=== PATIENT | female | born 1985 | race Caucasian/White ===

== ENCOUNTER 2021-08-19 09:01 | Outpatient (CLI) | payer BC, SELFPAY ==
[2021-08-19 10:54] LABS: Hematocrit 37.1 % (37.0-47.0); Hemoglobin 12.2 g/dL (12.0-15.0); Mean Corpuscular HGB Conc 32.9 g/dl (32-36); Mean Corpuscular Hemoglobin 28.8 pg (26-34); Mean Corpuscular Volume 87.7 fl (80-100); Mean Platelet Volume 9.2 fl (7.4-10.4); Platelet Count Result 338 k/mm3 (150-375); Red Blood Count 4.23 M/mm3 (4.2-5.4); White Blood Count 10.4 K/mm3 (4.5-10.0)
[2021-08-19 11:15] LABS: Glucose 1 Hour PP 50gm Dose 143 mg/dL
[2021-08-19 12:04] LABS: HIV 1/2 Ab P24 Ag Result Negative (Negative)
== END 2021-08-19 09:02 | disposition home or self-care (01) ==
PROVIDERS: Obstetrics & Gynecology; PCP Family Medicine; Visit Provider Internal Medicine Hematology & Oncology
DX: Z34.92 Encounter for supervision of normal pregnancy, unspecified, second trimester (principal); Z3A.26 26 weeks gestation of pregnancy
CPT/HCPCS: 36415; 82947; 85027; 86703; G0432

== ENCOUNTER 2021-09-12 07:58 | Outpatient (CLI) | payer BC, SELFPAY ==
[2021-09-12 08:25] LABS: Glucose Fasting Gestational 92 mg/dL (>/=95)
[2021-09-12 10:21] LABS: Glucose 1 Hour Gest 170 mg/dL (>/=180)
[2021-09-12 11:07] LABS: Glucose 2 Hour Gest 174 mg/dL (>/= 155)
[2021-09-12 12:56] LABS: Glucose 3 Hour Gest 158 mg/dL (>/=140)
== END 2021-09-12 07:59 | disposition home or self-care (01) ==
PROVIDERS: PCP Family Medicine; Visit Provider Obstetrics & Gynecology
DX: R73.09 Other abnormal glucose (principal)
CPT/HCPCS: 36415; 82951; 82952

== ENCOUNTER 2021-10-02 13:45 | Outpatient (RCR) | payer BC, SELFPAY ==
[2021-10-02 13:37] VITALS: BMI 24.9
[2021-10-02 13:43] VITALS: BMI 24.9
== END 2021-12-15 09:31 | disposition home or self-care (01) ==
LOC: ANHDMC 13:45
PROVIDERS: PCP Family Medicine; Visit Provider Obstetrics & Gynecology
DX: O24.419 Gestational diabetes mellitus in pregnancy, unspecified control (principal); Z3A.00 Weeks of gestation of pregnancy not specified; Z71.89 Other specified counseling; Z71.3 Dietary counseling and surveillance
CPT/HCPCS: 97802; G0108

== ENCOUNTER 2021-11-16 02:19 | Inpatient (IN) | payer BC, SELFPAY ==
--- NOTE | 2021-11-10 13:21 | PC.NURSE ---
Verified with OR schedule and patient --C/S on 11/19/21 at 9 am for breech Patient given requisition for lab draw on 11/18/21
[2021-11-16] VITALS (26 sets, daily range): BP systolic 104–163; BP diastolic 60–123; PULSE 68–136; RESP 14–18; TEMP 36.4–37.2; O2SAT 98–100; BMI 26.2
[2021-11-16] MEDS: LACTATED RINGERS 1,000 ML 125 ML IV CONT (03:00)
--- NOTE | 2021-11-16 03:07 | P.HP_ITS ---
H&P: HPI History of Present Illness Date/Time: 11/16/21 03:07 Kacie is a 36yo @ 39.0wks (APRYL 11/23/21) who presented to L&D in active labor, 6cm w/ regular contractions. She has been breech this entire time and was scheduled for on 11/19/21. She reports regular contractions. No VB or LOF. Good movement. Her is complicated by: - Breech malpresentation - A1GDM Chief Complaint: contractions Review of Systems Review of Systems: All systems reviewed & are unremarkable except as noted in HPI and below (HPI) [facility] Past Medical History Medical History Adverse effect of cefaclor Allergies Amoxicillin rash Anxiety and depression Surgical History Surgical History History of colposcopy (10/02/15) 10/02/2015 chronic cxitis History of colposcopy (08/17/13) 08/17/2013 benign Family History Family History Mother Hypertension Thyroid disorder Essential thrombocythemia Father Diabetes mellitus Hypertension Blood clot in vein Cerebrovascular accident Heart attack S/P CABG x 4 Grandparent Breast cancer Heart attack Stented coronary artery Depression Chronic obstructive pulmonary disease Social History Social History Smoking status: Never smoker Alcohol intake: never Substance use: never Spiritual care concerns: No Meds Home Medications and Allergies Home Medications Medication Instructions Recorded Confirmed Type vitamins-iron 29 mg-folic 1 tablet PO 08/05/21 11/12/21 History acid 1 mg-docusate 50 mg tablet Allergies Allergy/AdvReac Type Severity Reaction Status Date / Time amoxicillin [From Amoxil] Allergy Rash Verified 11/16/21 03:04 cefaclor [From Ceclor] Allergy Rash Verified 11/16/21 03:04 Exam Const: General: cooperative, healthy appearing and comfortable Resp: Effort & Inspection: normal respiratory effort Cardio: Rate: regular rate GI: Inspection: normal to inspection GI Palp: No abdominal tenderness and Yes Soft to palpation : Other: FHT's: 140's/mod wilma/ + accels/ no decels - cat 1 TOCO: ctx'sq2-4min Cervix: 6/C/-4 Presentation: breech confirmed on bedside US Skin: General skin exam: normal color Neuro: General: patient oriented x3 Extrem: General: normal to inspection Psych: Appearance: grossly normal Affect: normal affect Attitude: cooperative Assessment and Plan Assessment and plan (1) Breech presentation: Qualifiers: Fetus number: single or unspecified fetus Qualified Code(s): O32.1XX0 - Maternal care for breech presentation, not applicable or unspecified Code(s): O32.1XX0 - Maternal care for breech presentation, not applicable or unspecified Status: Acute (2) Active labor at term: Status: Acute Additional Plan - Breech confirmed on bedside US - Proceed with primary due to malpresentation - risks and benefits explained in detail
[2021-11-16 03:15] LABS: Basophils Absolute Auto 0.1 K/mm3 (0.0-0.1); Basophils Percent Auto 0.5 % (0.2-1.2); Eosinophils Absolute Auto 0.1 K/mm3 (0-0.3); Eosinophils Percent Auto 0.8 % (0-4.4); Hematocrit 38.7 % (37.0-47.0); Hemoglobin 11.9 g/dL (12.0-15.0); Immature Granulocyte Absolute 0.05 K/mm3 (0.00-0.031); Immature Granulocyte Percent A 0.5 % (0-0.5); Lymphocytes Absolute Auto 2.37 K/mm3 (0.9-3.2); Lymphocytes Percent Auto 21.9 % (18.3-44.2); Mean Corpuscular HGB Conc 30.7 g/dl (32-36); Mean Corpuscular Hemoglobin 25.9 pg (26-34); Mean Corpuscular Volume 84.3 fl (80-100); Mean Platelet Volume 9.8 fl (7.4-10.4); Monocytes Absolute Auto 0.6 K/mm3 (0.1-0.6); Monocytes Percent Auto 5.4 % (2.6-8.5); Neutrophils Absolute Auto 7.7 K/mm3 (1.3-6.7); Neutrophils Percent Auto 70.9 % (45.5-73.1); Platelet Count Result 291 k/mm3 (150-375); Red Blood Count 4.59 M/mm3 (4.2-5.4); Red Cell Distribution Width 14.7 % (11.5-14.5); White Blood Count 10.8 K/mm3 (4.5-10.0)
--- NOTE | 2021-11-16 03:16 | LDADM ---
This patient, Kacie Cervantes, was admitted to Labor/Delivery/Recovery 120 on 11/16/21 at 02:19. Plans for labor, pain management and were discussed with patient. Patient/family oriented to hospital policies and general routines including ID bracelet, bed and alarms, visiting hours, pain management, procedures, bathroom and other care routines, personal items, smoking policy, room service/diet and guest tray routines, infant security routines, and visiting hours. Patient/Family are encouraged to report perceived risks to care and to ask questions if they do not understand what they are told or what they should do. See OBIX for further documentation.
--- NOTE | 2021-11-16 03:19 | WPDHPUPDATE1 ---
History and Physical Update Update Date/Time: 11/16/21 03:19 History and Physical has been reviewed, including an updated exam of the patient. There are NO changes in the patient's condition. Risks, benefits, and alternatives have been discussed and questions answered. Patient agrees to proceed with procedure.
--- NOTE | 2021-11-16 03:32 | WPDANESEPPF ---
Anes - Initial Pre Proc Eval Procedure: Operation Date: 11/16/21 03:30 Proposed Procedures p Section - Laney Trinh MD Operation Date: 11/19/21 09:00 Proposed Procedures p Section - Jessee Lizarraga MD Date/Time: 11/16/21 03:32 Surgeon: Jessee Lizarraga MD Pre Op Diagnosis: Contractions Patient Data Age: 36 Gender: F Height: 1.6 m Weight: 67 kg Allergies Allergy/AdvReac Type Severity Reaction Status Date / Time amoxicillin [From Amoxil] Allergy Rash Verified 11/16/21 03:04 cefaclor [From Ceclor] Allergy Rash Verified 11/16/21 03:04 Home Medications Medication Instructions Recorded Confirmed Type vitamins-iron 29 mg-folic 1 tablet PO 08/05/21 11/12/21 History acid 1 mg-docusate 50 mg tablet Laboratory Tests 11/16/21 11/16/21 11/16/21 03:09 03:09 03:09 WBC 10.8 K/mm3 H K/mm3 (4.5-10.0) RBC 4.59 M/mm3 M/mm3 (4.2-5.4) Hgb 11.9 g/dL L g/dL (12.0-15.0) Hct 38.7 % % (37.0-47.0) MCV 84.3 fl fl (80-100) MCH 25.9 pg L pg (26-34) MCHC 30.7 g/dl L g/dl (32-36) RDW 14.7 % H % (11.5-14.5) Plt Count 291 k/mm3 k/mm3 (150-375) MPV 9.8 fl fl (7.4-10.4) Immature Gran % (Auto) 0.5 % % (0-0.5) Neut % (Auto) 70.9 % % (45.5-73.1) Lymph % (Auto) 21.9 % % (18.3-44.2) [place] % (Auto) 5.4 % % (2.6-8.5) Eos % (Auto) 0.8 % % (0-4.4) Baso % (Auto) 0.5 % % (0.2-1.2) Lymph # (Auto) 2.37 K/mm3 K/mm3 (0.9-3.2) [place] # (Auto) 0.6 K/mm3 K/mm3 (0.1-0.6) Eos # (Auto) 0.1 K/mm3 K/mm3 (0-0.3) Baso # (Auto) 0.1 K/mm3 K/mm3 (0.0-0.1) Abs Immat Gran (auto) 0.05 K/mm3 H K/mm3 (0.00-0.031) Absolute Neuts (auto) 7.7 K/mm3 H K/mm3 (1.3-6.7) Absolute Nucleated RBC 0.0 K/mm3 K/mm3 (0.0-0.012) Nucleated RBC % 0.0 % % (0.0-0.2) RPR Pending HIV 1&2 Ab/P24 Ag 4thGn Pending Patient hx anesthesia problems: none Family hx anesthesia problems: none Results Review: All pre-operative results and documents have been reviewed as part of the pre-operative evaluation. [facility] Past Medical History Medical History Adverse effect of cefaclor Allergies Amoxicillin rash Anxiety and depression Surgical History Surgical History History of colposcopy (10/02/15) 10/02/2015 chronic cxitis History of colposcopy (08/17/13) 08/17/2013 benign Family History Family History Mother Hypertension Thyroid disorder Essential thrombocythemia Father Diabetes mellitus Hypertension Blood clot in vein Cerebrovascular accident Heart attack S/P CABG x 4 Grandparent Breast cancer Heart attack Stented coronary artery Depression Chronic obstructive pulmonary disease Social History Social History Smoking status: Never smoker Alcohol intake: never Substance use: never Spiritual care concerns: No Anes - Eval Final PreProcedure Day of Procedure 11/16/21 03:32 Patient weight: normal Heart: regular rate and rhythm Lungs: clear to auscultation Last oral intake: 6 hours ASA classification: II Emergent: no Anesthetic plan: proceed Anesthesia type and monitoring: regional and standard monitoring Results Review: All pre-operative results and documents have been reviewed as part of the pre-operative evaluation. Informed Consent: The patient's anesthetic plan and its attendant risks and benefits were discussed with the patient/family/POA. Questions were solicited and answers provided to the satisfaction of the patient/family/POA.
[2021-11-16] MEDS: ceFAZolin 2 GM/D5W 50 ML 2 GM/50 ML BAG IVPB (03:46)
[2021-11-16 04:06] LABS: HIV 1/2 Ab P24 Ag Result Negative (Negative)
--- NOTE | 2021-11-16 04:37 | P.PCNOB_ITS ---
OB - Delivery Note Procedure Delivery date: 11/16/21 Procedure: Procedures Operation Date: 11/16/21 03:30 <No data on this case meets the specified criteria> Operation Date: 11/19/21 09:00 <No data on this case meets the specified criteria> Events: Breech Presentation and Gestational Diabetes Delivery monitor: External FHT and External Uterine Route of delivery: Delivery repair: vicryl Specimen: Yes (placenta) Quantitative Blood Loss (ml): 215 Anesthesia type: Spinal Disposition: Floor [place] Baby Date of : 11/16/21 Time of : 03:53 Weeks of gestation at delivery: 39 Infant gender: Male Weight (pounds): 6 Weight (ounces): 10 presentation: cher breech Placenta delivery description: Manual Removal (cord avulsed) Cord Vessel Description: 3 Vessels score one minute: 9 score five minutes: 9 Narrative: She was counseled on all risks and benefits in detail. She was taken to the operating room where spinal was placed. She was then prepped and draped in the normal sterile fashion. She received 2g Ancef and a time out was performed. A Pfannenstiel incision was made in the skin and carried down to the underlying fascia. The fascia was nicked on either side of the midline and the fascial incision was extended laterally and superiorly. The fascia was then elevated and the underlying rectus muscles were dissected off the fascia, superiorly and inferiorly. The rectus muscles were then in the midline and the peritoneum was entered bluntly. Once adequate exposure was obtained, a Mobius self retractor was placed within the abdomen. A bladder flap was created. A low transverse incision was made on the lower uterine segment and clear fluid was noted. The buttocks were brought to the hysterotomy and the infant was easily delivered using normal breech maneuvers, meconium was noted. The infant had spontaneous cry and the mouth and nose were bulb suctioned. The cord was clamped and cut and the was handed off to the awaiting pediatric nurse. A segment of the cord was collected for cord gases. The remaining cord blood was collected for typing. With pitocin infusing, gentle traction was placed on the cord and the cord avulsed. The placenta was then removed manually without complications. The uterus was cleared of all clots and debris using a clean, moist lap. The hysterotomy was then repaired in a running, interlocking fashion using 0 Vicryl. A second layer imbricating suture was then made using 0 Vicryl. A figure of eight stitch using 0 Vicryl was placed in the right edge of the hysterotomy, and it was found to be hemostatic and good uterine tone. The bilateral adnexa were examined and found to be normal. The pelvis was cleared of all clots and fluid. The Mobius retractor was removed from the abdomen. The peritoneum, muscle, and fascia were examined and made hemostatic with bovie cautery. The fascia was then repaired using a 0 Vicryl suture in a running fashion. The subcutaneous tissue was then irrigated and made hemostatic with bovie cautery. The subcutaneous tissue was then reapproximated using 2-0 Vicryl. The skin was then closed using 4-0 Monocryl in a running subcuticular fashion. Sponge, lap, needle and instrument counts were correct at the end of the procedure x2. The patient tolerated the procedure well and was taken to recovery in a stable condition. [facility] Delivery Billing Delivery Delivery: Delivery Charge
[2021-11-16] MEDS: OXYTOCIN 30 UNITS/NS 500 ML 30 UNITS/500 ML BAG 125 UNITS IV CONT (05:00)
--- NOTE | 2021-11-16 07:05 | OBPPTRN ---
Patient transferred to post room #290 via stretcher. Support person and baby present. Oriented to unit, room, information board, rooming in, admission packet and security measures. Patient verbalizes understanding. Call light within reach and bed locked in lowest position
[2021-11-16] MEDS: DEXTROSE 5%/0.45% SOD CHL 1,000 ML 125 ML IV CONT (10:06)
[2021-11-16] MEDS: KETOROLAC 30 MG/ML VIAL (*BKC) IV PUSH ×2 (10:09→16:33)
[2021-11-16 17:30] LABS: Mean Corpuscular HGB Conc 32.4 g/dl (32-36); Mean Corpuscular Hemoglobin 26.4 pg (26-34); Mean Corpuscular Volume 81.7 fl (80-100); Platelet Count Result 268 k/mm3 (150-375); Red Blood Count 4.16 M/mm3 (4.2-5.4); Red Cell Distribution Width 14.7 % (11.5-14.5); White Blood Count 13.8 K/mm3 (4.5-10.0)
[2021-11-16 17:37] LABS: Total Protein Urine Random 20 mg/dL
[2021-11-16 17:39] LABS: Alanine Aminotransferase 13 U/L (4-35); Alkaline Phosphatase 184 U/L (38-126); Anion Gap 1 mmol/L (8-16); Aspartate Amino Transferase 31 U/L (14-36); Bilirubin,Total 0.1 mg/dL (0.2-1.3); Blood Urea Nitrogen 7 mg/dL (7-17); Calcium 8.5 mg/dL (8.4-10.2); Carbon Dioxide 25 mmol/L (22-30); Chloride 106 mmol/L (98-107); Estimated CRCL calculation 93 ml/min; Estimated Glomerular Filt Rate > 60; Glucose 116 mg/dL (65-110); Lactate Dehydrogenase 557 U/L (313-618); Potassium 3.4 mmol/L (3.4-5.0); Sodium 132 mmol/L (137-145); Uric Acid 3.5 mg/dL (2.5-7.5)
[2021-11-16 18:06] LABS: Creatinine Urine 38.1 mg/dL; Ur Ttl Prot Creatinine Ratio 0.52 mg/mg (0-0.20)
[2021-11-16] MEDS: MULTIVIT/MIN/PREN/FOL AC/IRON TABLET 1 TAB PO (19:25)
[2021-11-16] MEDS: DOCUSATE SODIUM 100 MG CAPSULE PO (19:25)
[2021-11-16] MEDS: SIMETHICONE 80 MG TAB.CHEW PO (19:26)
[2021-11-16] MEDS: HYDROcodone/acetaminophen (*CRX) 5-325 MG TABLET 1 TAB PO (19:26)
[2021-11-16] MEDS: NIFEdipine 30 MG TAB.ER.24 PO (20:19)
[2021-11-17] VITALS (8 sets, daily range): BP systolic 117–141; BP diastolic 79–94; PULSE 81–108; RESP 16–20; TEMP 36.5–37.4; O2SAT 98–100
--- NOTE | 2021-11-17 07:12 | PM.OBPNVD ---
OB - PN: Subj Subjective Date/time seen: 11/17/21 07:12 Narrative: POD#1 Kacie reports doing well today. Her bleeding is light. Her pain is controlled. She is tolerating regular diet, voiding, passing gas, and ambulating without issues. Her blood pressures have been better since starting the nifedipine. She denies any issues with her incision. She is breast feeding/pumping. She would like her son circumcised. OB - PN: Obj Data Labs CBC & Chem 7: 11/16/21 17:21 11/16/21 17:21 Labs: Laboratory Results - last 24 hr 11/16/21 11/16/21 11/16/21 17:21 17:21 17:21 WBC 13.8 H RBC 4.16 L Hgb 11.0 L Hct 34.0 L MCV 81.7 MCH 26.4 MCHC 32.4 RDW 14.7 H Plt Count 268 MPV 10.0 Sodium 132 L Potassium 3.4 Chloride 106 Carbon Dioxide 25 Anion Gap 1 L BUN 7 Creatinine 0.60 L Estim Creat Clear Calc 93 Estimated GFR > 60 Glucose 116 H Uric Acid 3.5 Calcium 8.5 Total Bilirubin 0.1 L AST 31 ALT 13 Alkaline Phosphatase 184 H Lactate Dehydrogenase 557 Total Protein 6.0 L Albumin 3.0 L U Random Total Protein Urine Creatinine Protein/Creat Ratio 2 11/16/21 17:22 WBC RBC Hgb Hct MCV MCH MCHC RDW Plt Count MPV Sodium Potassium Chloride Carbon Dioxide Anion Gap BUN Creatinine Estim Creat Clear Calc Estimated GFR Glucose Uric Acid Calcium Total Bilirubin AST ALT Alkaline Phosphatase Lactate Dehydrogenase Total Protein Albumin U Random Total Protein 20 Urine Creatinine 38.1 Protein/Creat Ratio 2 0.52 H OB - PN A/P Assessment and Plan (1) Breech presentation: Qualifiers: Fetus number: single or unspecified fetus Qualified Code(s): O32.1XX0 - Maternal care for breech presentation, not applicable or unspecified Code(s): O32.1XX0 - Maternal care for breech presentation, not applicable or unspecified Status: Acute (2) Pre-eclampsia: Code(s): O14.90 - Unspecified pre-eclampsia, unspecified trimester Status: Acute (3) S/P primary low transverse : Code(s): Z98.891 - History of uterine scar from previous surgery Status: Acute Plan Plan: routine care Comments: - continue pain meds - will switch to Labetalol (pt cannot swallow pills); pt asymptomatic and BP's in normal to mild range overnight Time Spent With Patient Time: Total time spent is greater than 50% in coordination of care (as documented) at patient's floor/unit and/or counseling patient: Review of Systems Constitutional: Constitutional: Denies chills, Denies fever(s) and Denies headache(s) Eyes: Eyes: Denies change in vision ENT: Denies dizziness and Denies headache(s) Cardiovascular: Cardiovascular: Denies chest pain, Denies palpitations and Denies dyspnea Respiratory: Respiratory: Denies cough and Denies dyspnea Gastrointestinal: Gastrointestinal: Denies nausea and Denies vomiting Genitourinary: Comments: normal bleeding Neurologic: Denies dizziness and Denies headache(s) Endocrine: Endocrine: Denies palpitations Exam Const: General: cooperative, comfortable and no acute distress Orientation/consciousness: patient oriented x3 Resp: Effort & Inspection: normal respiratory effort Auscultation: clear to auscultation bilaterally Cardio: Rate: regular rate GI: Inspection: non-distended and incision (covered with clean dressing) GI Palp: Yes abdominal tenderness (appropriate) and Yes Soft to palpation Auscultation: normal bowel sounds : Other: fundus firm Skin: General skin exam: normal color Neuro: General: patient oriented x3 Extrem: General: normal to inspection Psych: Appearance: grossly normal Affect: normal affect Attitude: cooperative
[2021-11-17 09:00] LABS: Rapid Plasma Reagin Non-Reactive (NonReactive)
[2021-11-17] MEDS: DOCUSATE SODIUM LIQ 100 MG/10 ML UDC PO ×2 (09:44→17:52)
[2021-11-17] MEDS: IBUPROFEN SUSPENSION 200 MG/10 ML UDC 600 MG PO ×2 (09:44→17:53)
[2021-11-17] MEDS: ACETAMINOPHEN ELIXIR 325 MG/10.15 ML UDC 650 MG PO ×2 (09:45→17:53)
[2021-11-17] MEDS: LABETALOL HCL 100 MG TABLET 200 MG PO ×2 (09:46→21:05)
[2021-11-17] MEDS: MULTIVIT/MIN/PREN/FOL AC/IRON TABLET 1 TAB PO (09:48)
--- NOTE | 2021-11-17 12:55 | PC.NURSE ---
[id number] Breast pump provided prior to shift due to patient concerned with having milk for and thinking she needed to feed something so she started bottle feeding and pumping. Discussed milk production and supply. Father of the baby came into the room and supported mom feeding and had concerns regarding mother getting sleep, having the efforts, his ability to help feed the infant, and shared past experiences with his children born over 17 yrs ago. Encouraged pumping every 3 hours 1-2 times at night to stimulate hormones to make and release milk. Instructions given on cleaning, care, usage, there should be no pain, pumping schedule for milk production, collection, and storage of human milk. Parents are encouraged to record pumping schedule on the feeding sheet. Father of the baby is concerned that mother will not get up through the night to pump and she needs her sleep. Education given on stimulating infant to wake with unwrapping, undressing and burping so would eat drink the formula bottle since mother is having difficulty waking infant to eat. Patient was assessed for correct placement, flange size, to pump for comfort and nipple stretching/stimulation for adequate milk production. Encouraged parents to love and feed their baby working with a plan that fits their lifestyle. Mother voiced understanding of the education shared and referred to the mom and baby guide for additional resource information. Reported to the primary RN.
[2021-11-17] MEDS: HYDROcodone/acetaminophen (*CRX) 5-325 MG TABLET 1 TAB PO (21:05)
--- NOTE | 2021-11-18 07:20 | P.PNOB_ITS ---
OB - PN: Subj Subjective Date/time seen: 11/18/21 07:20 Narrative: POD#2 Kacie reports doing well today. Her bleeding is light. Her pain is controlled. She is tolerating regular diet, voiding, passing gas, and ambulating without issues. Her blood pressures are in normal range since switching to labetalol. She denies any issues with her incision. She is pumping. She would like to go home tomorrow. OB - PN: Obj Data Labs CBC & Chem 7: 11/16/21 17:21 11/16/21 17:21 Labs: Laboratory Results - last 24 hr 11/16/21 03:09 RPR Non-reactive OB - PN A/P Assessment and Plan (1) Pre-eclampsia: Qualifiers: Trimester: third trimester Qualified Code(s): O14.93 - Unspecified pre- eclampsia, third trimester Code(s): O14.90 - Unspecified pre-eclampsia, unspecified trimester Status: Acute (2) S/P primary low transverse : Code(s): Z98.891 - History of uterine scar from previous surgery Status: Acute Plan day: 2 Plan: routine care and discharge home (tomorrow) Comments: - Pelvic rest; take meds as prescribed - Incision care/no heavy lifting - ER return precautions: fever, n/v/abd pain, bleeding, HTN - F/u in 2wks for incision/BP check Time Spent With Patient Time: Total time spent is greater than 50% in coordination of care (as documented) at patient's floor/unit and/or counseling patient: Review of Systems Constitutional: Constitutional: Denies chills, Denies fever(s) and Denies headache(s) Eyes: Eyes: Denies change in vision ENT: Denies dizziness and Denies headache(s) Cardiovascular: Cardiovascular: Denies chest pain, Denies palpitations and Denies dyspnea Respiratory: Respiratory: Denies cough and Denies dyspnea Gastrointestinal: Gastrointestinal: Denies nausea and Denies vomiting Genitourinary: Comments: normal bleeding Neurologic: Denies dizziness and Denies headache(s) Endocrine: Endocrine: Denies palpitations Exam Const: General: cooperative, comfortable and no acute distress Orientation/consciousness: patient oriented x3 Resp: Effort & Inspection: normal respiratory effort Auscultation: clear to auscultation bilaterally Cardio: Rate: regular rate GI: Inspection: non-distended and incision (covered with clean dressing) GI Palp: Yes abdominal tenderness (appropriate) and Yes Soft to palpation Auscultation: normal bowel sounds : Other: fundus firm Skin: General skin exam: normal color Neuro: General: patient oriented x3 Extrem: General: normal to inspection Psych: Appearance: grossly normal Affect: normal affect Attitude: cooperative
[2021-11-18] MEDS: DOCUSATE SODIUM LIQ 100 MG/10 ML UDC PO ×2 (07:41→17:20)
[2021-11-18 07:42] VITALS: PULSE 80
[2021-11-18] MEDS: LABETALOL HCL 100 MG TABLET 200 MG PO ×2 (07:42→21:16)
[2021-11-18] MEDS: IBUPROFEN SUSPENSION 200 MG/10 ML UDC 600 MG PO ×2 (07:43→17:21)
[2021-11-18] MEDS: MULTIVIT/MIN/PREN/FOL AC/IRON TABLET 1 TAB PO (07:43)
[2021-11-18] MEDS: ACETAMINOPHEN ELIXIR 325 MG/10.15 ML UDC 650 MG PO ×2 (07:46→17:20)
[2021-11-18 08:30] VITALS: BP 114/83; PULSE 89; RESP 16; TEMP 37.1; O2SAT 97
[2021-11-18 19:52] VITALS: BP 141/98; PULSE 92; RESP 18; TEMP 36.6; O2SAT 99
[2021-11-18] MEDS: HYDROcodone/acetaminophen (*CRX) 5-325 MG TABLET 1 TAB PO (21:16)
[2021-11-19 07:55] VITALS: PULSE 85
[2021-11-19] MEDS: DOCUSATE SODIUM LIQ 100 MG/10 ML UDC PO (07:55)
[2021-11-19] MEDS: LABETALOL HCL 100 MG TABLET 200 MG PO (07:55)
[2021-11-19] MEDS: ACETAMINOPHEN ELIXIR 325 MG/10.15 ML UDC 650 MG PO (07:56)
[2021-11-19] MEDS: MULTIVIT/MIN/PREN/FOL AC/IRON TABLET 1 TAB PO (07:56)
[2021-11-19] MEDS: IBUPROFEN SUSPENSION 200 MG/10 ML UDC 600 MG PO (07:56)
[2021-11-19 08:40] VITALS: BP 124/79; PULSE 79; RESP 18; TEMP 36.9; O2SAT 100
--- NOTE | 2021-11-19 11:33 | PC.NURSE ---
Patient viewed the discharge video Mother & Baby Care, The First Two Weeks . Patient was given the opportunity and encouraged to ask questions. Patient verbalized understanding of information shared and has been given the mother/baby guide for home reference.
--- NOTE | 2021-11-20 08:04 | PM.OBDSVD ---
DS: Admitting Diagnosis Discharge Date 11/19/21 Admitting Diagnosis active labor breech malpresentation DS: Discharge Diagnosis Discharge Diagnosis (1) S/P primary low transverse : Code(s): Z98.891 - History of uterine scar from previous surgery Status: Acute (2) Pre-eclampsia: Qualifiers: Trimester: third trimester Qualified Code(s): O14.93 - Unspecified pre-eclampsia, third trimester Code(s): O14.90 - Unspecified pre-eclampsia, unspecified trimester Status: Acute (3) Active labor at term: Status: Acute (4) Breech presentation: Qualifiers: Fetus number: single or unspecified fetus Qualified Code(s): O32.1XX0 - Maternal care for breech presentation, not applicable or unspecified Code(s): O32.1XX0 - Maternal care for breech presentation, not applicable or unspecified Status: Acute OB - DS: Summary OB Procedures : Ultrasound OB Procedures Intrapartum: low cervical, transverse OB Procedures: : None Peripartum Data Infant Delivery Method: Section Procedures: Procedures Operation Date: 11/16/21 03:30 Actual Procedure Side Surgeon p Section Laney Trinh MD Operation Date: 11/19/21 09:00 <No data on this case meets the specified criteria> complications: none [place] 1: Gender: Male Disposition of : home Status at Discharge Functional status at discharge: independent ambulation Overall status at discharge: patient is back to baseline Time Spent with Patient Time attestation: Total time spent providing and/or coordinating discharge services: Time spent: Less than 30 minutes Exam Const: General: cooperative, comfortable and no acute distress Orientation/consciousness: patient oriented x3 Resp: Effort & Inspection: normal respiratory effort Auscultation: clear to auscultation bilaterally Cardio: Rate: regular rate GI: Inspection: non-distended and incision (covered w/ clean dressing) GI Palp: No abdominal tenderness and Yes Soft to palpation Auscultation: normal bowel sounds : Other: fundus firm Skin: General skin exam: normal color Neuro: General: patient oriented x3 Extrem: General: normal to inspection Psych: Appearance: grossly normal Affect: normal affect Attitude: cooperative DS: Data Data Completed and Pending Pending studies at discharge: Pending at discharge 11/16/21 06:22 Surgical [PTH] Routine Discharge Plan Discharge Attending physician on discharge: Laney Trinh Discharging Clinician: Laney Trinh Anticipated Discharge Date/Time: 11/19/21 10:00 Patient Disposition: Home, Self-Care Activity: may drive after 2 weeks and pelvic rest Diet: regular Discharge Instructions: Education: Mom and Baby Guide Given to: Mother Follow-Up: Call your delivering provider's office for an appointment to be seen in: 2 Weeks Mom and baby should come to the [facility] for the follow-up appointment. Appointment Date/Time: November 20, 2021 at 9:00 am What to expect at your follow-up visit: Blood Pressure Check Physical Assessment Call [phone] if you are unable to keep your appointment time. BREAST CARE: * Wear a snug supportive bra. * For engorgement discomfort: Breast Feeding: * Apply warm moist washcloths * Express milk as needed to relieve engorgement * Wear loose clothing Bottle Feeding: * May apply ice packs ABDOMINAL INCISION: (if applicable) * Allow incision to air dry * Do NOT use lotions for powders on your incision * When showering, allow soap and water to run over the incision, but do not wash incision EPISIOTOMY/PERINEAL CARE: * Until bleeding stops, use your sushma bottle after urinating * Change your pad frequently throughout the day * You may take sitz baths several times a day (fill your
[2021-11-20 09:27] VITALS: BP 121/75; PULSE 87; RESP 20; TEMP 36.6; O2SAT 100
== END 2021-11-19 13:53 | disposition home or self-care (01) | DRG 788 ==
LOC: ANHOB2 11-18 09:01 → ANHLDR 11-20 09:27
PROVIDERS: Admitting Provider Obstetrics & Gynecology; PCP Family Medicine; Visit Provider Obstetrics & Gynecology
PROC: 10D00Z1 Extraction of Products of Conception, Low, Open Approach (ICD-10-PCS; CPT 59514; principal; 2021-11-16 03:30)
DX: O32.1XX0 Maternal care for breech presentation, not applicable or unspecified (principal); Z37.0 Single live birth; Z3A.39 39 weeks gestation of pregnancy; O24.429 Gestational diabetes mellitus in childbirth, unspecified control; O14.94 Unspecified pre-eclampsia, complicating childbirth
CPT/HCPCS: 36415; 80053; 81050; 82570; 83615; 84156; 84550; 85025; 85027; 86592; 86703; 86850; 86900; 86901; 88307; A9270; G0432; J0131; J0690; J1885; J2274; J2370; J2405; J2590; J7120